=== PATIENT | female | born 1940 | race Caucasian/White ===

== ENCOUNTER → 2016-08-17 | Outpatient (CLI) | payer OTHER, MEDICARE | END | disposition home or self-care (01) | LOC: RAD.S 07:27 → PTH.S 07:45 → RAD.S 08:30 | DX: M79.604 Pain in right leg (principal); R20.0 Anesthesia of skin; M48.06 Spinal stenosis, lumbar region ==

== ENCOUNTER 2016-09-27 13:40 | Emergency (ER) | payer OTHER, MEDICARE ==
--- NOTE | 2016-09-29 00:03 | ER ---
ADMIT: 09/27/2016 RM/LOC: ER [facility] MR#: [id number] [address] [id number] LESLEY TYRESE Wade [address] [place] [address] Emergency Room Report SEX: F AGE: 76 : 1940 DATE: 09/27/2016 A 76-year-old female, who slipped and fell in [employer] today striking her head and landing on her thumb. She is complaining of pain, headache, and thumb pain on the right. See T-sheet for history and physical. A head scan was unremarkable. There is questionable fracture in the MCP of the right thumb. The thumb is splinted. She is instructed to follow up with her physician this week. DIAGNOSES: Head injury, abrasions, contusions, and possible thumb fracture. Kyler Knox MD/ jenna JOB #: [id number] CC: José Woods MD, Attending Physician Leyla Whittington MD, Family Physician
== END 2016-09-27 15:30 | disposition home or self-care (01) ==
LOC: ER 13:40
PROC: 2W3CX1Z Immobilization of Right Lower Arm using Splint (ICD-10-PCS; principal; 2016-09-27)
DX: S62.514A Nondisplaced fracture of proximal phalanx of right thumb, initial encounter for closed fracture (principal); S00.93XA Contusion of unspecified part of head, initial encounter; I10 Essential (primary) hypertension; Z79.899 Other long term (current) drug therapy; Z23 Encounter for immunization; W19.XXXA Unspecified fall, initial encounter; Y92.69 Other specified industrial and construction area as the place of occurrence of the external cause